=== PATIENT | female | born 1975 | race Asian ===

== ENCOUNTER 2017-08-07 10:40 | Emergency (ER) | payer BC ==
--- NOTE | 2017-08-07 12:00 | ED ---
GI/ HPI - HPI Summary HPI Summary: 42 female presents to ED with complaints of needing follow up after having one episode of bright red blood when wiping and in stool 1 month ago when in [place]. Was told to have follow up in [place] when she gets back however does not have a PCP. Denies any abdominal pain currently. States sometimes she has stomach upset after foods, nothing now. No PMHx. No medications. No recent blood in stool noted. Is sometimes constipated, however did have bowel movement yesterday , normal. No diarrhea. Admits to hemorrhoid history. No vomiting, no fever/ chills. No other complaints. No urinary symptoms. - History of Current Complaint Chief Complaint: EDGIBleed Time Seen by Provider: 08/07/17 10:53 Stated Complaint: BLOODY STOOL Hx Obtained From: Patient Onset/Duration: Started Weeks Ago - 1 month ago, Resolved Current Severity: None Vaginal Bleeding Description: Bright Red Pain Intensity: 0 Location of Pain: None Associated Signs and Symptoms: Positive: Nausea - sometimes after eating food, not currently, Recent Abnormal Coagulation Studies - possibly from [place], Bright Red Blood w/Stool - one time, one month ago. Negative: Weight Loss Aggravating Factor(s): Nothing Alleviating Factor(s): Nothing - Allergy/Home Medications Allergies/Adverse Reactions: Allergies Allergy/AdvReac Type Severity Reaction Status Date / Time No Known Allergies Allergy Verified 08/07/17 10:48 PMH/Surg Hx/FS Hx/Imm Hx Endocrine/Hematology History: Denies: Hx Anticoagulant Therapy, Hx Diabetes Cardiovascular History: Denies: Hx Hypertension Respiratory History: Denies: Hx Asthma - Cancer History Hx Chemotherapy: No Hx Radiation Therapy: No - Surgical History Surgery Procedure, Year, and Place: n/a - Immunization History Immunizations Up to Date: Yes Infectious Disease History: No Infectious Disease History: Reports: Traveled Outside the [place] in Last 30 Days - back from [facility] 2 days ago, was in [place] before that. - Family History Known Family History: Positive: None - Social History Alcohol Use: None Substance Use Type: Reports: None Smoking Status (MU): Never Smoked Tobacco Review of Systems Constitutional: Negative Cardiovascular: Negative Respiratory: Negative Gastrointestinal: Negative Positive: Other - bright red blood in stool x 1 one month ago Genitourinary: Negative All Other Systems Reviewed And Are Negative: Yes Physical Exam Triage Information Reviewed: Yes Vital Signs On Initial Exam: Initial Vitals Temp Pulse Resp BP Pulse Ox 98.2 F 68 16 118/69 99 08/07/17 10:42 08/07/17 10:42 08/07/17 10:42 08/07/17 10:42 08/07/17 10:42 Vital Signs Reviewed: Yes Appearance: Positive: Well-Appearing, No Pain Distress, Well-Nourished Skin: Positive: Warm, Skin Color Reflects Adequate Perfusion, Dry. Negative: Cold, Cyanosis @, Pale, Cold Injury Neck: Positive: Supple Respiratory/Lung Sounds: Positive: Clear to Auscultation, Breath Sounds Present. Negative: Rales, Rhonchi, Wheezes Cardiovascular: Positive: Normal, RRR, Pulses are Symmetrical in both Upper and Lower Extremities. Negative: Murmur, Rub Abdomen Description: Positive: Nontender, No Organomegaly, Soft, Other: - rectal exam appeared normal no blood, no fissure easily noted, no hemmorhoids currently.. Negative: CVA Tenderness (R), CVA Tenderness (L), Distended, Guarding, McBurney's Point Tenderness, Peritoneal Signs Bowel Sounds: Positive: Present Musculoskeletal: Positive: Normal, Strength/ROM Intact Neurological: Positive: Normal, Sensory/Motor Intact, Alert, Oriented to Person Place, Time Diagnostics - Vital Signs Vital Signs Temp Pulse Resp BP Pulse Ox 08/07/17 11:00 67 98 08/07/17 10:59 104/63 08/07/17 10:42 98.2 F 68 16 118/69 99 - Laboratory Result Diagrams: 08/07/17 12:00 08/07/17 12:00 Lab Statement: Any lab studies that have been ordered have been reviewed, and results considered in the medical decision making process. Re-Evaluation - Re-Evaluation First Eval Re-Evaluation Time: 13:25 Change: Unchanged - feels fine, updated on results, agrees and understands plan [facility] Course/Dx - Course Course Of Treatment: basic labs obtained to check H&H. stool occult blood obtained and negative.labs also normal and no signs of anemia or blood loss. follow up with GI and PCP. Aware of worsening signs and symptoms. No other concerns. normal vitals. - Diagnoses Provider Diagnoses: Normal exam Discharge - Discharge Plan Condition: Good Disposition: HOME Referrals: [facility] [Outside] Rick Cardenas MD [Medical Doctor] - Additional Instructions: Please make an appointment to follow up with PCP regularly, call to make an appointment. Follow up with GI if symptoms return or for further testing, call to make an appointment, if needed. Recommend trying anti-acid medication for upset stomach after eating occasionally (tums, zantac, prilosec). Any new or worsening symptoms please return.
[2017-08-07 12:09] LABS: Hematocrit 39 % (35-47); Mean Corpuscular HGB Conc 33 g/dl (31-36); Mean Corpuscular Hemoglobin 30 pg (27-31); Mean Corpuscular Volume 91 fL (80-97); Mean Platelet Volume 7 um3 (7.4-10.4); Platelet Count 250 10^3/ul (150-450); Red Blood Count 4.27 10^6/ul (4.0-5.4); Red Cell Distribution Width 14 % (10.5-15); White Blood Count 4.4 10^3/ul (3.5-10.8)
[2017-08-07 13:14] VITALS: BP 102/67
== END 2017-08-07 13:14 | disposition home or self-care (01) ==
LOC: ED 10:40
DX: K92.2 Gastrointestinal hemorrhage, unspecified (principal)
CPT/HCPCS: 36415; 80053; 82272; 85027; 99282

== ENCOUNTER 2021-07-24 11:46 | Observation (INO) ==
[~2021-07-24 11:46] MED LIST: NS 0.9% 1000 ml BAG 1,000 ML IVPB SCH
[2021-07-24] MEDS ORDERED: Clindamycin 900 MG/D5W BAG IVPB ONE (12:00)
[2021-07-24] MEDS ORDERED: HYDROmorphone PCA 20 MG/20 ML PCA.SYRING PCA SCH (13:00)
[2021-07-24 13:05] LABS: ABS Lymphocytes 1.3 10^3/ul (1.0-4.8); ABS Monocytes 0.4 10^3/ul (0-0.8); ABS Neutrophils 2.4 10^3/ul (1.5-7.7); Eosinophil % 0.4 %; Hematocrit 39 % (35-47); Hemoglobin 13.1 g/dL (12.0-16.0); Lymphocyte % 31.7 %; Mean Corpuscular HGB Conc 34 g/dL (31-36); Mean Corpuscular Hemoglobin 30 pg (27-31); Mean Corpuscular Volume 90 fL (80-97); Platelet Count 225 10^3/uL (150-450); Red Blood Count 4.32 10^6 /uL (3.70-4.87); Red Cell Distribution Width 14 % (10-15); White Blood Count 4.1 10^3/uL (3.5-10.8)
[2021-07-24 13:13] LABS: Activated Partial Thrombo Time 34.9 seconds (26.0-38.0); INR 1.07 (0.86-1.15)
[2021-07-24 13:27] LABS: Blood Urea Nitrogen 12 mg/dL (6-24); CO2 Carbon Dioxide 25 mmol/L (22-32); Calcium 9.2 mg/dL (8.6-10.3); Chloride 106 mmol/L (101-111); Glucose 80 mg/dL (70-100); Sodium 138 mmol/L (135-145); eGFR CKD-EPI 108.8 (>60)
[2021-07-24] MEDS ORDERED: Scopolamine 1 mg/72hr PATCH ONE (13:30)
[2021-07-24] MEDS ORDERED: oxyCODONE SR 10 mg TAB ONE (13:30)
[2021-07-24] MEDS ORDERED: Ondansetron 4 mg VIAL 2 MG/ML 2 ml VIAL ONE (13:30)
[2021-07-24 13:32] LABS: HCG Pregnancy < 0.60 mIU/mL
[2021-07-24 14:29] LABS: Anion Gap 7 mmol/L (2-11); Potassium 3.9 mmol/L (3.5-5.0)
[2021-07-24] MEDS ORDERED: Midazolam 5 mg/5 ml VIAL 1 mg/ml 5 ml VIAL (5 mg) ONE (16:38)
[2021-07-24] MEDS ORDERED: fentaNYL 100 mcg/2 ml 50 MCG/ML VIAL ONE ×2 (16:38→17:50)
[2021-07-24] MEDS ORDERED: Lidocaine 1% VIAL 10 MG/ML VIAL ONE (16:40)
[2021-07-24] MEDS ORDERED: Iohexol 350 (CONTRAST) 200 ML MDV IV ONE (16:40)
[2021-07-24] MEDS ORDERED: nitroGLYCERIN DRIP 25,000 MCG/250 ML BTL ONE (16:40)
[2021-07-24] MEDS ORDERED: Heparin 2 UNITS/ML IVPREMIX 3,000 UNIT/1,500 ML BAG IV ONE (16:41)
[2021-07-24] MEDS ORDERED: HYDROmorphone 0.5 MG/0.5 ML SYRINGE ONE ×2 (18:07→18:34)
[2021-07-24] MEDS ORDERED: NS 0.9% 1,000 ML IV SCH (19:15)
[2021-07-24] MEDS ORDERED: Saline NASAL DROPS 0.65% BTL BOTH NARES PRN (22:07)
[2021-07-24] MEDS: Ondansetron 4 mg VIAL 2 MG/ML 2 ml VIAL IV SCH (22:16)
[2021-07-25] MEDS: Ondansetron 4 mg VIAL 2 MG/ML 2 ml VIAL IV SCH (05:48)
[2021-07-25] MEDS ORDERED: HYDROcodone/ACETAMIN 5/325 mg TAB PO PRN (08:04)
[2021-07-25] MEDS ORDERED: NS 0.9% 1000 ml BAG 1,000 ML IV ONE (08:50)
[2021-07-25] MEDS ORDERED: CAPSU PO SCH (09:00)
[2021-07-25] MEDS ORDERED: CMCS: OMEGA-3 FATTY ACID 1000 mg(NF) PO SCH (09:00)
[2021-07-25] MEDS ORDERED: Cholecalciferol (VIT D3) 1,000 unit TAB PO SCH (09:00)
[2021-07-25] MEDS ORDERED: C E ZINC COPPER OMEGA3S LUT PO SCH (09:00)
[2021-07-25] MEDS ORDERED: Ketorolac 10 mg TAB (NF) PO SCH (11:00)
[2021-07-25 11:30] VITALS: BP 96/60
== END 2021-07-25 13:10 | disposition home or self-care (01) ==
LOC: CHICATH 11:46 → SSU 11:46
PROVIDERS: ADMIT Internal Medicine; ATTEND Internal Medicine
PROC: ANG.UFE (2021-07-24 11:10)